=== PATIENT | male | born 1960 | race Caucasian/White ===

== ENCOUNTER 2016-12-21 22:10 | Inpatient (IN) | payer MEDICARE, OTHER ==
[~2016-12-21] VITALS: Ht 177.8 cm; Wt 68.2 kg
[~2016-12-21 22:10] MED LIST: GABA800T PO; OXYC-90 PO; [UNRECOGNIZED DRUG - CODE] PO
[2016-12-21 22:34] VITALS: BP 123/80; PULSE 95; RESP 20; O2SAT 98
--- NOTE | 2016-12-21 22:44 | ED.REPORT ---
HPI-Psychiatric Illness Date of Service Dec 21, 2016 ED Provider: Kash Trejo MD Patient is a 56 year old male with a history of schizophrenia who presents to the ED via [place] [employer] after he developed delusional and aggressive behavior today. [place] Police were called to his elderly parent's residence this evening after he was threatening towards them. The patient had become obsessed with a device in his brain and several government conspiracies. The patient requested to be "taken offline and declared ". On initial evaluation in the ED the patient has multiple complaints. He states that this is his last chance before he goes to [place] to seek medical asylum. His main problems are "the ALEX ", "that we are the richest country in the world", and that he is "llergic to a substance called "icarus" which degrades all of the joints in my body and my reproductive organs". 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 However, the government is keeping him from getting adequate medical care and there are "political winds" working against him. He reports that all of the imaging of his bones that he has ever had has been falsified. This is something that goes beyond this hospital and is a high up conspiracy. He previously noticed that he has an implant on his optical nerve while looking at a scan of his head, but was told that this was not actually there. He previously broke his right wrist, shoulder, and ankle but all imaging he has received stated that he did not have broken bones. The patient also has a condition where his sympathetic nerves do not allow him to feel pain, however he later reports that he experiences pain that "almost kills me". The patient was reportedly seen by Dr. Jones, neurology, for his chronic pain. He states that Dr. Jones ordered an MRI of his shoulder and he became unhappy when he would not perform an MRI extending to his back and neck. However he now realizes that Dr. Jones was a "smart doctor". Tonight the patient is requesting an MRI of his back, due to his "T-spine blowout" and an MRI of his right shoulder. He states that x-rays and CT scan cannot are not adequate and that any report cannot be trusted. The patient has reportedly not had mental health treatment in 5 years and is not currently on any psychiatric medications. Patient was last admitted to [facility] in 2004 for psychosis. Nursing Notes Stated Complaint: MENTAL HEALTH Chief Complaint: Psychiatric Complaint Nursing Notes Reviewed: Yes Allergies: Coded Allergies: No Known Allergies (Verified , 08/01/05) Scheduled Gabapentin-Expunged Drug, Do Not Renew! (Neurontin-Expunged Drug, Do Not Renew! ) 800 Mg Tablet 800 MG PO TID Morphine-Expunged Drug, Do Not Renew! (MS Contin-Expunged Drug, Do Not Renew!) 30 Mg Tber 30 MG PO TID Oxycodone/APAP-Expunged Drug, Do Not Renew! (Percocet 7.5/325-Expunged Drug, Do Not Renew!) 1 Tab Tablet 1 TAB PO TID General Time Seen by MD: 22:34 Chief Complaint Bizarre behavior, Paranoid Hx Obtained From: Patient, Police Arrived By: Police Onset Occurred: 1 day ago Symptom Duration: Since onset Progression Since Onset: Gradually worsening Recent Healthcare: No recent doctor visit, No recent hospitalization Similar Sx Previous: Yes Risk-Psychiatric Illness Suicide Risk Stratification Suicide Risk Factors - Adult: : Alcohol use: Prior psych admission RF Statements: Risk factors reviewed Past Medical History Past Medical History schizophrenia, prior psychiatric admission for psychosis pancreatitis depression traumatic clavicle separation Reports: Hypertension Reports: Migraines Past Surgical History Reports: Back/neck surgery Smoking History Smoker Current Status UNK Social History Other Social History: Good social support, Local resident Ambulatory Status Independent Review of Systems Unable to Obtain ROS Mental status (limited by) Psychiatric: Reports: Change mental status, Delusional Musculoskeletal: Reports: Extremity pain, Joint pain Physical Exam Initial Vital Signs Vital Signs (First) Date Time Temp Pulse Resp B/P Pulse Ox O2 Delivery O2 Flow Rate FiO2 12/21/16 22:34 36.6 95 20 123/80 98 Room Air Initial VS: Reviewed Head / Eyes: Atraumatic, Normocephalic, PERRL ENT: Conjunctiva normal, No scleral icterus Neck: Supple, Non-tender, Full range of motion Respiratory: Breath sounds normal, Clear to auscultation, No respiratory distress Cardiovascular: Regular rate & rhythm, Heart sounds normal Abdomen / GI: Soft, Non-tender, No distention Extremities: Vascular intact, Neuro intact, No swelling, No tenderness Skin: Warm, Dry, No cyanosis General/Constitutional: Awake, Alert, No acute distress Neurologic: Oriented X3, No motor deficits, No sensory deficits, CN II - XII intact Psychiatric: Not suicidal, Not homicidal Abnormal Thinking / Perception: Positive: Delusions - grandeur, Delusions - paranoid, Tangential thinking manic psychotic speech pattern Interpretation & Diagnostics Interpretation & Diagnostics: Breathalyzer @ 0401: 0.045 Urine Drug Screen: Negative Lab Results Interpretation Result Diagram: 12/21/16 2314 12/21/16 2314 Test 12/21/16 23:14 12/22/16 00:55 White Blood Count 6.2th/mm3 (3.8-10.1) Red Blood Count 4.05mil/mm3 (4.40-5.80) Hemoglobin 13.9g/dL (13.8-17.2) Hematocrit 39.2% (41.0-50.0) Mean Corpuscular Volume 96.8fL (81-100) Mean Corpuscular Hemoglobin 34.3pg (27.0-35.0) Mean Corpuscular Hemoglobin Concent 35.5% (32.0-37.0) Red Cell Distribution Width 12.1% (12.3-15.4) Platelet Count 222bil/L (150-400) Neutrophils (%) (Auto) 43.9% (40-74) Lymphocytes (%) (Auto) 43.4% (14-46) Monocytes (%) (Auto) 8.8% (4-12) Eosinophils (%) (Auto) 2.9% (0-5) Basophils (%) (Auto) 0.8% (0-3) Erythrocyte Sedimentation Rate 14mm/hr (0-30) Sodium Level 139mEq/L (134-144) Potassium Level 3.8mEq/L (3.5-5.2) Chloride Level 101mEq/L (97-108) Carbon Dioxide Level 24mmol/L (18-29) Blood Urea Nitrogen 13mg/dL (6-24) Creatinine 0.73mg/dL (0.76-1.27) Estimat Glomerular Filtration Rate 117mL/min (>59) Glucose Level 104mg/dL (60-99) Calcium Level 9.1mg/dL (8.5-10.1) Magnesium Level 2.0mg/dL (1.6-2.6) Total Bilirubin 0.3mg/dL (0.0-1.2) Aspartate Amino Transf (AST/SGOT) 55U/L (0-50) Alanine Aminotransferase (ALT/SGPT) 30U/L (0-44) Alkaline Phosphatase 72U/L (25-150) Total Protein 7.4g/dL (6.4-8.4) Albumin 4.3g/dL (3.4-5.0) Hold No Top Tube Received (Received) Alcohols 165mg/dL (0-10) Urine Color Straw (YELLOW) Urine Appearance Clear (CLEAR,HAZY) Urine pH 5.5 (5.0-8.0) Urine Specific [place] 1.005 (1.003-1.035) Urine Protein Negativemg/dL (NEG,TRACE) Urine Glucose (UA) Negativemg/dL (NEGATIVE) Urine Ketones Negativemg/dL (NEGATIVE) Urine Occult Blood Trace (NEGATIVE) Urine Nitrite Negative (NEGATIVE) Urine Bilirubin Negative (NEGATIVE) Urine Urobilinogen Normalmg/dL (NORMAL) Urine Leukocyte Esterase Negative (NEGATIVE) Urine RBC 0-2/hpf (0-2) Urine WBC 0-5/hpf (0-5) Urine Epithelial Cells Occasional/hpf (NONE-MOD) Urine Crystals None seen (NONE SEEN) Urine Bacteria None/hpf (NONE-FEW) Urine Hyaline Casts None/lpf (NONE) Urine Granular Casts None seen (NONE SEEN) Urine Waxy Casts None seen (NONE SEEN) Urine Red Blood Cell Casts None seen (NONE SEEN) Urine White Blood Cell Casts None seen (NONE SEEN) Urine Mucus None seen (None Seen) Urine Trichomonas None seen (NONE SEEN) Urine Yeast None (NONE SEEN) Urinalysis Comment None Urine Culture Reflexed Not indicated Re-Eval/Medical Decision Med Decision/Clinical Course 56-year-old purportedly with a diagnosis of schizophrenia presents more suggestively with bipolar manic type symptoms. He was threatening to his parents at home and brought in by police after a 911 call made. He is a fairly extensive fixed delusional system involving computer chips in his head and government control. He is not voluntary patient in the sense that he is completely unaware and unwilling to believe in any mental health issues or diagnoses. He is oriented. He is no longer intoxicated. He is medically clear and stable for psychiatric evaluation. DCR has been paged and will evaluate this morning. Signed out at [address] Howard. Source of Hx: Old records Re-Evaluation/Progress #1: Time of Eval: 03:00 Re-Evaluation/Progress Note: Patient continues to sleep in the ED comfortably. Re-Evaluation/Progress #2: Time of Eval: 05:29 Patient Status: Condition improved Re-Evaluation/Progress Note: Patient is now awake. Patient reports that he slept for 1.5 hours tonight, which is more than the typical amount of sleep that he gets. He requests to go outside to smoke. Patient will be give a nicotine patch. He also states that all the muscles in his body hurt, something which he typically takes Flexeril for. He will be given this medication to make him more comfortable. Consultation #1: Call Returned at: 04:17 Note: Spoke with the [facility] about the patient's case. They agree to dispatch the morning DCR to evaluate the patient. Consultation #2: Consulted With: powder worker tnt Call Returned at: 05:25 Slide Forming Machine Tender: Will see patient Note: Spoke with the DCR, Mei, about the patient's case. They agree to come evaluate the patient. Discharge & Departure Shift Change Sign-Out Patient Care Transferred: Yes Discussed Complaint(s): Yes Laboratory Evaluation: Back, reviewed by me Additonal Information: Awaiting DCR evaluation. Impression: Primary Impression: Psychosis Psychosis type: unspecified psychosis type Qualified Code: F29 - Unspecified psychosis not due to a substance or known physiological condition Additional Impression: Schizophrenia Schizophrenia type: unspecified Qualified Code: F20.9 - Schizophrenia, unspecified Discharge Condition All VS Reviewed: Yes Condition: Stable Referrals: Zoe Jackson (PCP) Care Transferred to: Dr. Howard Care Transferred at: 06:00 Divya Attestation Portions of this note were transcribed by Joyce Briot. I, Dr. Trejo personally performed the history, physical exam and medical decision-making; I reviewed and confirmed the accuracy of the information in the transcribed note. Signed by: Divya Valencia, 12/22/2016 0531 copies to: Zoe Jackson Christopher W MD Dec 21, 2016 22:44 Joyce Brito Dec 21, 2016 23:11
[2016-12-21 23:22] LABS: BASOPHILS % (AUTO) 0.8 % (0-3); EOSINOPHILS % (AUTO) 2.9 % (0-5); MONOCYTES % (AUTO) 8.8 % (4-12); Mean Corpuscular Hemoglobin 34.3 pg (27.0-35.0); Mean Corpuscular Volume 96.8 fL (81-100); NEUTROPHILS % (AUTO) 43.9 % (40-74); Platelet Count 222 bil/L (150-400)
[2016-12-21 23:39] LABS: ERYTHROCYTE SEDIMENTATION RATE 14 mm/hr (0-30)
[2016-12-22 01:03] LABS: APPEARANCE,URINE CLEAR (CLEAR,HAZY); COLOR,URINE STRAW (YELLOW); OCCULT BLOOD,URINE TRACE (NEGATIVE); PH,URINE 5.5 (5.0-8.0); UROBILINOGEN,URINE NORMAL (NORMAL)
[2016-12-22 06:02] VITALS: BP 130/81; PULSE 87; RESP 16; O2SAT 98
[2016-12-22 10:04] VITALS: BP 113/64; PULSE 107; RESP 20; O2SAT 97
[2016-12-22] MEDS ORDERED: Magnesium Hydroxide 10 mL Oral Concentration PO PRN ×2 (10:20→15:50)
[2016-12-22] MEDS ORDERED: Benzocaine-Menthol Lozenge 2/Pkg MT PRN (10:20)
[2016-12-22] MEDS ORDERED: Alum-Mag Hydrox-Simeth 30 mL Suspension PO PRN ×2 (10:20→15:50)
[2016-12-22 11:06] VITALS: BP 113/64; PULSE 107; RESP 20; O2SAT 97
--- NOTE | 2016-12-22 11:50 | NUR ---
Admit Note Pt admitted to room 228. Pt A/OX3, states "I'm at [facility]" and "I'm here to try one last time for treatment cause the FBI told me that I had to get treatment" Pt coop with care, oriented to room. Cont to monitor.
[2016-12-22] MEDS ORDERED: Benzocaine-Menthol Lozenge 2/Pkg PO PRN (15:50)
[2016-12-22 16:00] VITALS: BP 128/82; PULSE 90; RESP 18
--- NOTE | 2016-12-22 17:49 | NUR ---
Observations [id number] Pt arrived on unit at 1115. Pt stated that he is concerned about the government and "the chip they put in my brain." He presents are very paranoid. Pt was friendly with staff and didn't interact much with peers. He spent time between his room and dining area, and also spent time reading. Pt did not attend groups. He was observed every 15 minutes of shift as directed.
--- NOTE | 2016-12-22 21:37 | NUR ---
Nursing note: evening shift/psychosis Patient observed walking in hallway and dining room, minimal interaction with peers, superficially polite when advertising copy writer approached. Patient requests Nicorette lozenge for cigarette cravings. Patient ate well at dinner, then returned to room and resting on bed. Patient perseverates about a device implanted behind his optic nerve that "they" control. Patient states this device is usually not seen on xray, but he has seen it and knows it is there Patient reports "they" usually do not allow him to sleep more than an hour at at time. 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 Patient is cooperative with po medications, polite and thanks advertising copy writer for concern.
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
--- NOTE | 2016-12-23 03:14 | NUR ---
Observations 1900 to 0700 Pt was in his room for most of the night. Pt came out briefly on a few occasions. Pt first appeared asleep at 21:15 and was observed every 15 minutes through the night as directed.
--- NOTE | 2016-12-23 06:20 | NUR ---
Pt slept through the night with uninterrupted sleep until 0530 when he woke up requesting Valium 5mg prn and went back to sleep. No delusional ideations observed or reported. Pt in no acute distress. Monitoring ongoing.
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
[2016-12-23 09:00] VITALS: BP 118/74; PULSE 102; RESP 16
--- NOTE | 2016-12-23 12:57 | NUR ---
Nursing Day Shift- S- I'm ok. I'm dealing with some disappointments, but I need to talk to the Dr. about that." O- Pt. had slept 7.5 plus hours per report. He was awake and dressed for breakfast. Pt. was polite when staff introduced themselves. He eat well and was visible in the DR. He was overheard reporting delusional and paranoid thoughts. Pt. stated the above when asked how he was doing today. He declined to share any further. A- Polite, Several paranoid statements and apparent anxiety treated effectively with Valium PRN. P- Cont. BHTP.
--- NOTE | 2016-12-23 16:47 | NUR ---
Observations [id number] Pt was asleep upon start of shift. He appears as quiet, friendly upon interaction, but also very isolative. Pt's parents came to drop off a check for him to endorse to deposit. Pt also attended group and Community Meeting. He paced the unit at times, spending time in the dining area but not interacting with others. He also spent much of the day in his room. While he was wondering the halls he appeared to be internally preoccupied. He made a comment to this scenario writer regarding his parents coming to court, stating "there are things about the government...things bigger then them that I don't want them to know about." Pt appeared to be referencing his concern around their safety if they knew that information. Pt attended all meals, eating an average of 75%. He was observed every 15 minutes of shift as directed.
--- NOTE | 2016-12-23 18:50 | NUR ---
Nurses Note Evening Patient has been isolative to his room except for meals. When approached was hyperverbal, grandiose with paranoid thoughts about implantable devices in his head,tampered X-rays and telepathic communication with others. Will encourage medication compliance,reality test as tolerated. Addendum: 12/23/16 at 1859 by BRET RENDON RN Amended: Links added.
--- NOTE | 2016-12-23 21:33 | PCM.PNPSY ---
Subjective Date of Service Dec 23, 2016 Subjective The patient reports multiple conspiracies and that he feels that we should be reviewing his medical treatment and not focusing on his psychiatric issues. He reports he would like x-rays taken with transmission grayscale placed on them so that he can verify that they have not been substituted. He reports that if we will not work on this, he will need to contact [place] or the [employer]. Sleep: 7.75 hours Appetite: "fine" Suicidal and homicidal ideation: denies Auditory hallucinations: denies Visual hallucinations: denies Other Psychotic Symptoms: multiple delusions Anxiety: "because I'm bored." Depression: "malaise" Current Medications Current Medications Diazepam 5 mg BID PO Last administered on 12/23/16 20:27; Admin Dose 5 MG; Start 12/22/16 at 15:50 Diazepam 5 mg TID PRN PO Last administered on 12/23/16 13:06; Admin Dose 5 MG; Start 12/22/16 at 15:50 Diazepam 10 mg ONCE ONCE PO Last administered on 12/22/16 06:02; Admin Dose 5 MG; Start 12/22/16 at 05:40; Stop 12/22/16 at 05:41; Status DC Naproxen 500 mg ONCE ONCE PO Last administered on 12/22/16 06:11; Admin Dose 500 MG; Start 12/22/16 at 06:00; Stop 12/22/16 at 06:01; Status DC Nicotine 1 patch DAILY@17 TOPICAL Last administered on 12/23/16 08:39; Admin Dose 1 PATCH; Start 12/22/16 at 17:15 Nicotine 1 patch ONCE ONCE TOPICAL Last administered on 12/22/16 06:01; Admin Dose 1 PATCH; Start 12/22/16 at 05:30; Stop 12/22/16 at 05:31; Status DC Nicotine Polacrilex 2 mg ONCE ONCE BUCCAL Last administered on 12/22/16 06:01; Admin Dose 2 MG; Start 12/22/16 at 05:30; Stop 12/22/16 at 05:31; Status DC Nicotine Polacrilex 2 mg Q4H PRN BUCCAL Last administered on 12/22/16 17:45; Admin Dose 2 MG; Start 12/22/16 at 17:20 Olanzapine 10 mg HS PO Last administered on 12/23/16 20:27; Admin Dose 10 MG; Start 12/22/16 at 21:00 Trazodone HCl 50 mg HS PRN PO Last administered on 12/23/16 20:27; Admin Dose 50 MG; Start 12/22/16 at 10:20 Mental Status Exam Appearance: Unkept Attitude: Cooperative, Guarded Behavior: Overtly anxious Affect: Other (intense, but remains appropriate) Mood: Irritable Thought Process/Associations: Tangential, Circumstantial Speech Production: Abundant Speech Rate: Pressured Speech Articulation: Normal Thought Content: Negativistic, Somatic preoccupation, Perseveration Danger to Self/Suicidal Ideati: None Delusions: Paranoid (Endorses) Hallucinations: Auditory (Denies), Visual (Denies) Consciousness: Alert Orientation: Person, Place, Date, Situation Memory: Grossly Intact Estimate Intellectual Function: Average Basis for IQ estimate: Awareness current events, Word use/vocabulary, Educational history, Employment history Attention/Concentration & Cogn: Impaired Insight: Limited Judgement: Limited Result Diagram: 12/21/16 4734 12/21/164 Mental Health Plan The patient is a 56-year-old male with a history of psychosis or schizophrenia who presents with worsening psychotic symptoms and aggressive behavior. The patient has not had any recent followup. The patient is agreeable to medications and followup in the community. He is focused today on a number of medical issues that he perceives as being part of the perceived conspiracy. [place] I 1. Psychotic disorder, unspecified versus schizophrenia, chronic paranoid type versus schizoaffective disorder, bipolar type. 2. Alcohol use disorder. [place] II Deferred. [place] III See past medical history. [place] IV Severe with unemployment, homelessness, limited social supports. [place] V Global Assessment of Functioning 30. Treatments 1. The patient is admitted to the inpatient unit and will be provided a safe and secure environment. 2. The patient is currently denying active suicidality and is not in need of a one-to-one at this time. 3. The patient is encouraged to participate with group and milieu activities. 4. The patient will be seen by the treatment team on a daily basis to assess symptoms, side effects, and response to treatment. 5. The patient will be continued on olanzapine 10 mg nightly for psychosis. 6. The patient will be continued on diazepam 5 mg twice daily for agitation and elevated mood as well as 5 mg three times a day as needed. 7. May need mood stabilizer if does not respond to olanzapine monotherapy. 8. Trazodone 50 mg nightly as needed for insomnia. 9. Methocarbamol 750 mg four times daily as needed for muscle spasm. 10. Anticipated length of stay is 10-14 days. Titi Bonilla MD Dec 23, 2016 21:33
[2016-12-24 08:00] VITALS: BP 101/71; PULSE 92; RESP 16
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
--- NOTE | 2016-12-24 19:16 | NUR ---
Counseling/Auto Engine Mechanic: S: "So how are you holding up while you're up here on the 2nd floor?" O: Patient slept 8 hours last night per staff. He denies S/I and H/I. He denies auditory an visual hallucinations. A: Patient is cooperative, unkept, guarded, anxious, tangential, paranoid, limited insight, limited judgment. P: Follow care plan, coordinate out-patient providers.
--- NOTE | 2016-12-24 21:14 | PCM.PNPSY ---
Subjective Date of Service Dec 24, 2016 Subjective The patient reports that he would like to switch from [facility] to [facility] "as long as they aren't affiliated with [facility]." The patient reports that he would like a better support system in the community. Patient still focused on multiple medical issues and conspiracy against him, but redirects. He reports, "Feeling frozen out of the medical system." Patient reports would like new muscle relaxer, but has not tried the current one. Encouraged patient to use muscle relaxer for spasm. No side effects from current medications. Reports believes he can return to live with his parents. Sleep: 8 hours, "tossing and turning" Appetite: "fine" Suicidal and homicidal ideation: denies Auditory hallucinations: denies Visual hallucinations: denies Other Psychotic Symptoms: multiple delusions attenuated Anxiety: "because I'm primary type A." Depression: "not really" Current Medications Current Medications Nicotine 1 patch DAILY TOPICAL Last administered on 12/24/16t 07:04; Admin Dose 1 PATCH; Start 12/24/16 at 08:30 Mental Status Exam Appearance: Unkept Attitude: Cooperative Behavior: Overtly anxious Affect: Other (intense, but remains appropriate) Mood: Irritable Thought Process/Associations: Tangential, Circumstantial Speech Production: Abundant Speech Rate: Pressured Speech Articulation: Normal Thought Content: Negativistic, Somatic preoccupation, Perseveration Danger to Self/Suicidal Ideati: None Delusions: Paranoid (Endorses) Hallucinations: Auditory (Denies), Visual (Denies) Consciousness: Alert Orientation: Person, Place, Date, Situation Memory: Grossly Intact Estimate Intellectual Function: Average Basis for IQ estimate: Awareness current events, Word use/vocabulary, Educational history, Employment history Attention/Concentration & Cogn: Impaired Insight: Limited Judgement: Limited Result Diagram: 12/21/16 2314 12/21/16 2314 Mental Health Plan The patient is a 56-year-old male with a history of psychosis or schizophrenia who presents with worsening psychotic symptoms and aggressive behavior. The patient has not had any recent followup. The patient is agreeable to medications and followup in the community. He is less focused today on his medical issues and reports that he feels his current medications are helpful. [place] I 1. Psychotic disorder, unspecified versus schizophrenia, chronic paranoid type versus schizoaffective disorder, bipolar type. 2. Alcohol use disorder. [place] II Deferred. [place] III See past medical history. [place] IV Severe with unemployment, homelessness, limited social supports. [place] V Global Assessment of Functioning 30. Treatments 1. The patient is admitted to the inpatient unit and will be provided a safe and secure environment. 2. The patient is currently denying active suicidality and is not in need of a one-to-one at this time. 3. The patient is encouraged to participate with group and milieu activities. 4. The patient will be seen by the treatment team on a daily basis to assess symptoms, side effects, and response to treatment. 5. The patient will be continued on olanzapine 10 mg nightly for psychosis. 6. The patient will be continued on diazepam 5 mg twice daily for agitation and elevated mood as well as 5 mg three times a day as needed. 7. May need mood stabilizer if does not respond to olanzapine monotherapy. 8. Ambien 5-10 mg nightly as needed for insomnia. 9. Flexeril 10mg mg four times daily as needed for muscle spasm. 10. Anticipated length of stay is 10-14 days. Titi Bonilla MD Dec 24, 2016 21:14
--- NOTE | 2016-12-25 04:13 | NUR ---
nursing, nights, 11-7 s- i keep waking up. it's like i'm being remote controlled. i start to fad and then i just speed up. no i've always had trouble sleeping. i'd prefere the valium to the ambien. thank you. it's twenty to five and we're burning good daylight. [pt smiles when i point out it's dark and says you'll never make it as a ceballos] o- has appeared to sleep after [id number]. returned to sleep at 0045. up at 0145 and received 5 mg of ambien then easily returned to sleep. up at 0330 and received 5 mg of valium at 0405. alternates between lying in bed and wandering the halls. assessed q 15 minutes. a- interrupted sleep, pleasant and generally appropriate, no apparent internal stimuli, medication somewhat helpful, no apparent distress. p- monitor behavior/emotional state, quality, times and amount of sleep, use and effect of medication. jarett
[2016-12-25 09:00] VITALS: BP 101/72; PULSE 81
--- NOTE | 2016-12-25 11:07 | NUR ---
Nursing Dayshift: S: "I'm to freaked to be depressed." O: Patient relating to a CT he is going to have today. Calmer after he had spoken to the doctor and found out it would not have contrast. Anxiety "I feel like I'm taking off!" Denies harmful thoughts and hallucinations "I can have a hallucination if you want me to." Has been out of his room most of the AM. Good appetite. Talkative on approach. Pressured at times. A: Cooperative. P: CPOC. Monitor mood and behavior.
--- NOTE | 2016-12-25 13:02 | NUR ---
Obs Dayshift Pt is declining groups, engages well w/ peers and staff. Polite, calm, quiet on the unit. Pt. continues to believe that he has things/chips in his head, paranoid about people after him and that he is going into protective custody. Pt was requesting the front page of the newspaper, which staff choose not to put on the floor due to content, pt was paranoid and asking staff if the front page was about him. Good ADL's, Good meals - 100%
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
--- NOTE | 2016-12-25 22:58 | NUR ---
Nurses Note Evening "I'm waiting for the doctor to come out of that room." Patient was sitting in the hallway waiting for another patients' father to come out into the ocasio. Patient was redirected several times but was unable to process his reality. He otherwise has been isolative except for meals and medications. He remains medication compliant without adverse effects. Patient is scheduled for a CT scan tomorrow. Patient has had multiple X-rays and MRI in the past which noted DJD,surgical hardware in his cervical spine. He received Motrin 600mg and Ambien 5mg at 2100 for pain and sleep. shift stacker to assess sleep and maintain q 15min.checks for safety and support. Addendum: 12/25/16 at 2318 by BRET RENDON RN Amended: Links added.
--- NOTE | 2016-12-26 04:48 | NUR ---
nursing, nights, 11-7 s- your telling me no one in this hospital can have coffee before 6 am ? seems rather spurious to me. when can i have a shower ? o- has appeared to sleep after 2114. up for brief intervals at 2305, 0031, 0213, 0239, 0343 received repeat 5 mg of ambien, [id number] made above statement. irritated with staff that more options were not available before 6 am. is currently preparing to shower. assessed q 15 minutes. a- interrupted/inadequate sleep, resistant to staff assistance, no apparent physical distress. p- monitor behavior/emotional state, quality, times and amount of sleep, use and effect of medication. jarett
--- NOTE | 2016-12-26 05:27 | NUR ---
Pt appeared pressured and on the edge of agitation both in the evening and when up in the morning. Pt up and down frequently through night. Slept 5- with the multiple disruptions in sleep. Pt observed every 15 minutes as ordered.
--- NOTE | 2016-12-26 13:17 | DRSVH ---
PROCEDURE: CT BRAIN WITHOUT CONTRAST ([id number]) INDICATIONS: PSYCHOSIS TECHNIQUE: Noncontrast 4.5 mm thick angled axial sections acquired from the foramen magnum to the vertex, with c oronal reformats. COMPARISON: None. FINDINGS: Image quality: Excellent. CSF spaces: Basal cisterns are patent. No extra-axial fluid collections. The ventricles are symmet mary in size and shape. Brain: No intracranial bleeds or masses. There is cerebral volume loss for age, with resultant vent ricular and sulcal prominence. There are periventricular and deep white matter chronic small vessel ischemic changes. There is intracranial internal carotid artery atherosclerosis. Skull and face: Calvarium and visualized facial bones appear intact, without suspicious lesions. Sinuses: Visualized sinuses and mastoids are clear. IMPRESSION: No acute process. No explanation for psychosis. Dictated by: Marlene Muir M.D. on 12/26/2016 at 13:15 Approved by: Marlene Muir M.D. on 12/26/2016 at 13:16
--- NOTE | 2016-12-26 13:50 | NUR ---
NURS Note Day Shift Orientation: Person, Place, Time. Mood: "I'm too angry to be depressed." Endorses anxiety / prior to court. Endorses "some" depression "mixed in." Affect: Anxious, agitated, guarded. Thought Process/Content: "I've got thousands of people in my head each working on different parts of my psyche." Bizarre, persecutory, grandiose delusions. Denies SI, HI. Denies AH, VH. Behavior: Pacing, standing by nurses station. Out in common areas most of shift. PRNs/NURS: Took scheduled meds.
--- NOTE | 2016-12-26 17:41 | NUR ---
[facility] Day Shift Pt maintained behavioral control throughout the shift. Pt affect mostly flat, though less so than noted on previous shift. Pt spends most of the shift pacing the unit and lightly interacting with staff and peers in the dining room. Pt is appropriate with staff and peers when active on the unit. Pt occasionally appears to be attending to internal stimuli (pt stares appear distant) and remains guarded. Pt continues to express delusions of persecution. Pt attended all meals and ate approx 100% of all meals.
[2016-12-26 17:52] VITALS: BP 105/71; PULSE 93; RESP 16
--- NOTE | 2016-12-26 18:17 | PCM.PNPSY ---
Subjective Date of Service Dec 26, 2016 Subjective The patient reported that he still had the belief and ongoing conspiracies regarding his medical records. We discussed his family's concern that he stabilized prior to returning home and the patient did not support this. The patient is concerned about outpatient follow-up for his medical issues and reported that he would like to have follow-up with [facility] in [place] but they do not have an office there. Following his head CT and provisional reports that there were no major findings insisted that there "must be." He believes this sports book writer is not discussing the results with him as this sports book writer will somehow get into trouble with the government. No side effects reported from olanzapine. Sleep: 5.5 hours Appetite: "Good " Suicidal and homicidal ideation: Denies Auditory hallucinations: Reports that the auditory hallucinations has reduced significantly, but refers to them as intrusions by the government. Visual hallucinations: Denies Other Psychotic Symptoms: Circumstantial, rambling. Current Medications Current Medications Olanzapine 15 mg HS PO Last administered on 12/25/16t 21:04; Admin Dose 15 MG; Start 12/25/16 at 21:00 Mental Status Exam Vital Signs Vital Signs Date Time Temp Pulse Resp B/P Pulse Ox O2 Delivery O2 Flow Rate FiO2 12/26/16 17:52 36.4 93 16 105/71 Appearance: Neat/well groomed Attitude: Cooperative, Guarded Behavior: Overtly anxious Affect: Other (intense, but remains appropriate) Mood: Anxious Thought Process/Associations: Tangential, Circumstantial Speech Production: Abundant Speech Rate: Pressured Speech Articulation: Normal Thought Content: Negativistic, Somatic preoccupation, Perseveration Danger to Self/Suicidal Ideati: None Danger to Others: None Delusions: Paranoid (Endorses) Hallucinations: Auditory (Endorses), Visual (Denies) Consciousness: Alert Orientation: Person, Place, Date, Situation Memory: Grossly Intact Estimate Intellectual Function: Average Basis for IQ estimate: Awareness current events, Word use/vocabulary, Educational history, Employment history Attention/Concentration & Cogn: Impaired Insight: Limited Judgement: Limited Result Diagram: 12/21/16 3568 12/21/16 8247 Mental Health Plan The patient is a 56-year-old male with a history of psychosis or schizophrenia who presents with worsening psychotic symptoms and aggressive behavior. The patient has not had any recent followup. The patient is agreeable to medications and followup in the community. He is less focused today on his medical issues and reports that he feels his current medications are helpful, but is still reporting ongoing auditory hallucinations and is experiencing rapid pressured speech. He was unwilling to stay in the hospital voluntarily or continue his case and ultimately the court placed him on a 90 day less restrictive order with 3 inpatient days. It is doubtful that the patient will be significantly improved by the end of this time however he will likely improve sufficiently to be returned home. The patient's head CT demonstrated some volume loss for age and white matter changes. No other acute findings. [place] I 1. Psychotic disorder, unspecified versus schizophrenia, chronic paranoid type versus schizoaffective disorder, bipolar type. 2. Alcohol use disorder. [place] II Deferred. [place] III See past medical history. [place] IV Severe with unemployment, homelessness, limited social supports. [place] V Global Assessment of Functioning 30. Medications Olanzapine 15 mg at bedtime Diazepam 5 mg twice daily Diazepam 5 mg 3 times daily as needed for anxiety or agitation Zolpidem 5 mg nightly when necessary insomnia Flexeril 10 mg 3 times daily as needed for spasm Treatments 1. The patient is admitted to the inpatient unit and will be provided a safe and secure environment. 2. The patient is currently denying active suicidality and is not in need of a one-to-one at this time. 3. The patient is encouraged to participate with group and milieu activities. 4. The patient will be seen by the treatment team on a daily basis to assess symptoms, side effects, and response to treatment. 5. Continue olanzapine 15 mg nightly. 6. The patient will be continued on diazepam 5 mg twice daily for agitation and elevated mood as well as 5 mg three times a day as needed. 7. May need mood stabilizer if does not respond to olanzapine monotherapy. 8. Ambien 5-10 mg nightly as needed for insomnia. 9. Flexeril 10mg mg 3 times daily as needed for muscle spasm. 10. Anticipated length of stay is 10-14 days. Titi Bonilla MD Dec 26, 2016 18:17
--- NOTE | 2016-12-26 19:10 | NUR ---
Counseling/Nuclear Reactor Technician: S: "The government put a chip in my cerebellum and think that I'm okay with it" O: Patient only slept 5.5 hours last night per staff. He denies S/I and H/I. He denies auditory an visual hallucinations. He denies depression and anxiety. A: Patient is cooperative, unkept, guarded, anxious, tangential, paranoid, delusional, limited insight, limited judgment. P: Follow care plan, coordinate out-patient providers.
--- NOTE | 2016-12-26 20:58 | NUR ---
NURSING NOTE [id number] Mood: "well, my anxiety, anger, and physical state are at an 8" Affect: paranoid, delusional Behavior: visible off and on in the DR, staring out the windows, making phone calls off and on, interacts sparingly w/peers Thought processes: continues to be delusional and makes bizarre statements, e.g reports he has a cell receptor implanted in his head and is being monitored; "I'm glad the doctor has accepted my parlance and has granted me a CT to finally clear the cath lab radiological technologist in my head." Endorses anxiety. PRNs Valium 5 mg @ 15:30 for anxiety 04/30
--- NOTE | 2016-12-27 05:51 | NUR ---
Nursing notes: overnight caregiver/sleep Patient awake at 0045, stating he can not fall back to sleep. Patient received repeat Ambien 5 mg po and returned to bed. Patient appears to be sleeping on safety checks from 130 to 0400, then remains up to hallway and dining room for the remainder of night. Patient is soft spoken and polite on approach. Remains with fragmented sleep.
[2016-12-27 08:07] VITALS: BP 104/61; PULSE 90; RESP 16
--- NOTE | 2016-12-27 11:15 | NUR ---
Nursing Day Shift- S- "I need something for pain. I never have gotten a pain pill. The said he would write for it if I could show I'd has a prescription. The thing is..Nobody will touch my case or they will loose their medicare, medicaid funding! A little office can't afford that, even this facility will be hurt!" O- Pt. began rambling about the above after asking about narcotic pain medications at 0730. He was given PRN Flexeril 10 mg at that time. Pt. was unable to confirm that he had an active prescription. All prescriptions had been in the past. He eat well. and remained hyperverbal at [facility]. A- Poor sleep of 3.5 hours per report. Paranoid and delusional thoughts. Eating well. Hyperverbal, but otherwise socially appropriate. P- Cont. bHTP. Addendum: 12/27/16 at 1133 by SRI BAKER RN Pt. requested and given Valium 5 mg at 1135 for anxiety.
--- NOTE | 2016-12-27 12:50 | PCM.PNPSY ---
Subjective Date of Service Dec 27, 2016 Subjective The results of the head CT and the images themselves were gone over with the patient. He also asked to review a number of other studies which were done with the patient. He was also shown a [place] view but stated that an image had been removed as he had seen an implant on the x-ray. We discussed that there are typically no other images but the patient disagreed. He went on to continue to talk about conspiracies and the need to adequately address his pain. He was informed he would need to be with a primary care physician who would address potentially using narcotic pain medication once out of this setting. He reported that he felt it was difficult hearing that he had schizophrenia in the court room and he believed that he could prove that the conspiracies to prove the implants on the films were real. When he was asked what makes him special so that others would go to the expense of replacing his films he stated "if I tell you it will make you think I am just more mentally ill." The patient was agreeable to having outpatient follow-up with [facility] in [place]. No side effects reported from olanzapine. Sleep: 3.5 hours Appetite: "Not bad " Suicidal and homicidal ideation: Denies Auditory hallucinations: Reports that the auditory hallucinations has reduced significantly, and he is only hearing "crickets" Visual hallucinations: Denies Other Psychotic Symptoms: Circumstantial, rambling. Anxiety/Depression: "Anger, anxiety, depression, frustration and "8-9/10 Current Medications Current Medications Olanzapine 15 mg HS PO Last administered on 12/26/16t 21:31; Admin Dose 15 MG; Start 12/25/16 at 21:00 Mental Status Exam Vital Signs Vital Signs Date Time Temp Pulse Resp B/P Pulse Ox O2 Delivery O2 Flow Rate FiO2 12/27/16 08:07 36.0 90 16 104/61 Appearance: Neat/well groomed Attitude: Cooperative (marginally), Guarded Behavior: Overtly anxious Affect: Other (intense, but remains appropriate) Mood: Anxious Thought Process/Associations: Tangential, Circumstantial Speech Production: Abundant Speech Rate: Pressured Speech Articulation: Normal Thought Content: Negativistic, Somatic preoccupation, Perseveration Danger to Self/Suicidal Ideati: None Danger to Others: None Delusions: Paranoid (Endorses) Hallucinations: Auditory (Endorses), Visual (Denies) Consciousness: Alert Orientation: Person, Place, Date, Situation Memory: Grossly Intact Estimate Intellectual Function: Average Basis for IQ estimate: Awareness current events, Word use/vocabulary, Educational history, Employment history Attention/Concentration & Cogn: Impaired Insight: Limited Judgement: Limited Result Diagram: 12/21/16 5434 12/21/16 3145 Mental Health Plan The patient is a 56-year-old male with a history of schizophrenia who presents with worsening psychotic symptoms and aggressive behavior. The patient has not had any recent followup. The patient is agreeable to medications and followup in the community. He is still focused today on his medical issues and reports that he feels his current medications are helpful, and is now only reporting auditory hallucinations of crickets and is still experiencing rapid pressured speech but is more redirectable. He was unwilling to stay in the hospital voluntarily or continue his case and ultimately the court placed him on a 90 day less restrictive order with 3 inpatient days. It is doubtful that the patient will be significantly improved by the end of this time however he will hopefully improve sufficiently to be returned home. The patient's head CT demonstrated some volume loss for age and white matter changes. No other acute findings. [place] I 1. Schizophrenia, chronic paranoid type versus schizoaffective disorder , bipolar type. 2. Alcohol use disorder. [place] II Deferred. [place] III See past medical history. [place] IV Severe with unemployment, homelessness, limited social supports. [place] V Global Assessment of Functioning 35. Medications Olanzapine 15 mg at bedtime Diazepam 5 mg twice daily Diazepam 5 mg 3 times daily as needed for anxiety or agitation Temazepam 15 mg nightly when necessary insomnia may repeat 1 Flexeril 10 mg 3 times daily as needed for spasm Treatments 1. The patient is admitted to the inpatient unit and will be provided a safe and secure environment. 2. The patient is currently denying active suicidality and is not in need of a one-to-one at this time. 3. The patient is encouraged to participate with group and milieu activities. 4. The patient will be seen by the treatment team on a daily basis to assess symptoms, side effects, and response to treatment. 5. Continue olanzapine 15 mg nightly. 6. The patient will be continued on diazepam 5 mg twice daily for agitation and elevated mood as well as 5 mg three times a day as needed. 7. May need mood stabilizer if does not respond to olanzapine monotherapy. 8. Discontinue Ambien and start temazepam 15 mg nightly when necessary insomnia may repeat 1 9. Flexeril 10mg mg 3 times daily as needed for muscle spasm. 10. Anticipated length of stay is 10-14 days. Titi Bonilla MD Dec 27, 2016 12:50
--- NOTE | 2016-12-27 13:27 | NUR ---
Recovery Operator./c.m. S.: "Is it a part of my file now? The picture that I saw is not here. The image that I saw is not here right now... You were really rough on me yesterday in court. You called me a paranoid schizophrenic!" O.: met with pt. and MD together in a group room. MD was showing pt. images of pt.'s brain that were in pt.'s CD file. Pt. became frustrated and disappointed with his "file" because he believed that there was something missing that was very important for his "diagnosis". He also was upset with his diagnosis of paranoid schizophrenia. He believed that he had "medical issues that required pain medications. I'm not a schizophrenic! Look at people who are here - I am not like them!" He asked MD for a pain medications. He complained about poor sleep and he agreed to take a sleeping aid tonight. He denied SI/HI, denied AH/VH, denied paranoid/delusional thoughts. He rated "anxiety and anger" at 8-9/10 and "frustration and depression" at 8-9/10 also. He was in and out of his room but keeping mostly to himself. A.: pt. is cooperative, isolative, paranoid and delusional, internally preoccupied, seeking pain meds. P.: monitor behavior, continue engaging pt. in the unit activities; follow care plan.
--- NOTE | 2016-12-27 19:01 | NUR ---
Observations from [id number] Pt is very delusional and preoccupied. During community meeting this morning, he took over the conversation to discuss how much pain he's in and how no one has ever helped him and continued with this most of the day. He has also been very preoccupied with getting discharged even thought his thinking is very tangential and disorganized. He seems to have little insight into his delusions and feels he is completely ready to be discharged. Pt showered and did laundry today and ate 100% of all meals. Pt has been monitored every 15 minutes as directed.
--- NOTE | 2016-12-27 19:43 | NUR ---
NURSING NOTE [id number] Mood: "It's like biting into a pepper that's hotter than the habanero pepper, thinking everything's great but then it hits you." Affect: calm, pleasant upon approach Behavior: watching TV, spent some time in the rec room, social w/peers Thought processes: delusional, bizarre; reported: "there's a schism between organized crime and the government and I'm stuck in between it-- they're trying to control me and the question is if you're gonna let them." Disorganized and tangential in speech, e.g. discussing government conspiracies in one moment then reporting he is a hermaphrodite and needs corrective surgeries in another. PRNs 15:55- Valium 5 mg 16:05- Tylenol 650 mg + Flexeril 10 mg for 6/10 shoulder pain
--- NOTE | 2016-12-28 05:28 | NUR ---
Sleep 11p-7a financial health counselor awakening. Pt slept from 1299-1970 for a total of 5 hours. He requested a prn Valium 0.5mg stating "It's as good as any other pill. It isn't so much anxiety but anger". Valium 0.5 mg po prn given @ 0409. Pt has remained awake walking the hallway between his room and the dining room.
[2016-12-28 11:01] VITALS: BP 106/67; PULSE 82; RESP 16
--- NOTE | 2016-12-28 12:23 | NUR ---
Nursing Day Shift- S- "I need to leave today. This place Isn't working out for me. They could call me at home with my discharge follow-ups." O- Pt. was awake for breakfast. He made several delusional comments, and requested discharge. He requested and received PRN Valium 5 mg at 1130 for angry feelings. A- Delusional. able to control behavior, very limited insight. P- Discharge tomorrow as Pt's Mental health hold will .
--- NOTE | 2016-12-28 13:20 | NUR ---
Soldering Inspector./ c.m. S.:"Can I be released today? I committed no crime! I didn't do anything wrong but I was detained for a week now. I'm very intelligent. I have a good vocabulary that is more than 200 and I won't explain what it means... I feel maybe a little better today than yesterday. I'm not schizophrenic!" O.: met with pt. and MD together in a private room. Pt. demanded discharge home. He was angry and frustrated because he was here. He denied SI/HI, denied AH/VH, denied paranoid/delusional thoughts. He rated his anger, depression and anxiety at 7-8/10. He asked MD if he called FBI in [facility] to make an inquiry about his case. He said that he was related to 4 former presidents and 13 or 18 dignitaries. He talked about poor medications management and lack of correct diagnosis. He wanted to get a follow up appt. for medications with "a young doctor, preferably female who would be a constitution party." He was in and out of his room during the day. He spent a lot of time in the Dining room writing in his notebook or looking outside a window. He keeps mostly to himself. A.: pt. is isolative, paranoid, delusional, grandiose, confused and internally preoccupied. He has an intense eye contact, pressured speech and poor insight into his condition. P.: monitor behavior, provide safety in the unit, encourage pt. to take meds, follow care plan.
--- NOTE | 2016-12-28 18:15 | PCM.PNPSY ---
Subjective Date of Service Dec 28, 2016 Subjective The patient reports that he would like to be "released today." He states that he sees no reason for his further hospitalization. He reports that his IQ is over 200, and that he was angry that it was said that he was "prone to aggression"in court. He was reminded that the police reports indicated that he been verbally aggressive with his parents and that no one stated he was "prone to aggression." The patient went on for some time about believing that his medications as an outpatient were placebo and that on one occasion following a medical visit he took a handful of pills with out any affect. He believes that his medications here may be placebo as he believes his outpatient meds have been. He continues to perseverate on the x-ray imaging not being available. He reports he believes that he is due "100s of millions of dollars due to [the government] causing pain suppression via cybernetic implants." The patient was upset that this commercial loan underwriter did not contact the FBI or his psychologist who he had had remotely seen in the past and for whom he did not have contact information. Sleep: 6.5 hours Appetite: Eating meals Suicidal and homicidal ideation: Denies Auditory hallucinations: Unclear Visual hallucinations: None reported Other Psychotic Symptoms: Multiple delusions as above Anxiety: Depression: Current Medications Current Medications Temazepam 15 mg HS PRN PO Last administered on 12/27/16t 20:30; Admin Dose 15 MG ; Start 12/27/16 at 12:55 Mental Status Exam Vital Signs Vital Signs Date Time Temp Pulse Resp B/P Pulse Ox O2 Delivery O2 Flow Rate FiO2 12/28/16 11:01 36.1 82 16 106/67 Appearance: Neat/well groomed Attitude: Cooperative (marginally), Guarded Behavior: Overtly anxious Affect: Labile, Other (intense, but remains appropriate) Mood: Irritable, Anxious Thought Process/Associations: Tangential, Circumstantial Speech Production: Abundant Speech Rate: Pressured Speech Articulation: Normal Thought Content: Negativistic, Somatic preoccupation, Perseveration Danger to Self/Suicidal Ideati: None Danger to Others: None Delusions: Paranoid (Endorses), Grandiose (Endorses) Hallucinations: Auditory (Endorses, unclear), Visual (Denies) Consciousness: Alert Orientation: Person, Place, Date, Situation Memory: Grossly Intact Estimate Intellectual Function: Average Basis for IQ estimate: Awareness current events, Word use/vocabulary, Educational history, Employment history Attention/Concentration & Cogn: Impaired Insight: Limited Judgement: Limited Mental Health Plan The patient is a 56-year-old male with a history of schizophrenia who presents with worsening psychotic symptoms and aggressive behavior. The patient has not had any recent followup. The patient is agreeable to medications and followup in the community. He is still focused today on his medical issues and reports that he feels his current medications are helpful, but is focused on his delusions and need for early discharge. The patient had been unwilling to stay in the hospital voluntarily or continue his case and ultimately the court placed him on a 90 day less restrictive order with 3 inpatient days rather than a 14 day order. The patient's head CT demonstrated some volume loss for age and white matter changes; no other acute findings. Given the patient's ongoing psychotic symptoms, should the patient continued to demand discharge, an AMA discharge may be indicated. Given the fact that he is on a 90 day less restrictive order and would need medications or would automatically be in violation of the order, this should be discussed with risk management if this option is considered. [place] I 1. Schizophrenia, chronic paranoid type versus schizoaffective disorder , bipolar type. 2. Alcohol use disorder. [place] II Deferred. [place] III See past medical history. [place] IV Severe with unemployment, homelessness(living with parents), limited social supports. [place] V Global Assessment of Functioning 35. Medications Olanzapine 15 mg at bedtime Diazepam 5 mg twice daily Diazepam 5 mg 3 times daily as needed for anxiety or agitation Temazepam 15 mg nightly when necessary insomnia may repeat 1 Flexeril 10 mg 3 times daily as needed for spasm Treatments 1. The patient is admitted to the inpatient unit and will be provided a safe and secure environment. 2. The patient is currently denying active suicidality and is not in need of a one-to-one at this time. 3. The patient is encouraged to participate with group and milieu activities. 4. The patient will be seen by the treatment team on a daily basis to assess symptoms, side effects, and response to treatment. 5. Continue olanzapine 15 mg nightly. 6. The patient will be continued on diazepam 5 mg twice daily for agitation and elevated mood as well as 5 mg three times a day as needed. 7. May need mood stabilizer if does not respond to olanzapine monotherapy. 8. Discontinue Ambien and start temazepam 15 mg nightly when necessary insomnia may repeat 1 9. Flexeril 10mg mg 3 times daily as needed for muscle spasm. 10. The patient is not appropriate to discharge today given his level of psychosis. 11. The patient was placed on a 90 day less restrictive order with 3 days of inpatient time which tomorrow. It is unclear whether he will be appropriate for discharge at that time. Titi Bonilla MD Dec 28, 2016 18:15
--- NOTE | 2016-12-28 19:16 | NUR ---
NURSING NOTE [id number] Mood: "I'm in the throes of something here, that's what's really going on" Affect: flat, sarcastic at times Behavior: watching TV, using an ice pack on his back and frequently refilling it, often asking for PRNs for pain and anxiety Thought processes: continues to be delusional, grandiose, making bizarre statements often invoking conspiracy theories. Irritated that he is here and wants to discharge. PRNs Tylenol 15:30 for 910 back pain, pt. reported it didn't help w/his pain Addendum: 12/28/16 at 2126 by TOÑA GARCIA RN PRN Temazepam and Flexeril at .
--- NOTE | 2016-12-29 06:27 | NUR ---
Nursing Note, extractor loader and unloader 11pm to 7am Pt with interrupted sleep during the night. Got up every 2 hours for a drink went back to sleep. At 0400 pt awake again and unable to go back to sleep. Pt is frustrated over insomnia. He did have Restoril for sleep x 2 last night but was ineffective in sustaining sleep. Pt stated " It is being done remotely. The transmissions wake me up and my brain is too activated to go back to sleep". Pt reported he has similar issues when at home. Pt received Valium 5mg PRN at 0100 for anxiety. Monitored q 15 minutes for safety, location and accountability.
[2016-12-29 09:30] VITALS: BP 96/69; PULSE 98; RESP 16
--- NOTE | 2016-12-29 11:53 | NUR ---
anxiety patient reports feeling anxious, rates 7/10. PRN Valium 5mg PO given, per patient request
[2016-12-29] MEDS ORDERED: DIAZ5TAB PO (12:05)
[2016-12-29] MEDS ORDERED: OLAN5TAB PO (12:05)
--- NOTE | 2016-12-29 12:07 | PCM.DIMED ---
Discharge Instructions Date of Service Dec 29, 2016 Dates of Hospitalization Dec 22, 2016 at 10:29 Discharge Diagnosis Discharge Diagnosis Rolla I 1. Schizophrenia, chronic paranoid type versus schizoaffective disorder , bipolar type. 2. Alcohol use disorder. Rolla II Deferred. Rolla III See past medical history. Rolla IV Severe with unemployment, homelessness(living with parents), limited social supports. Rolla V Global Assessment of Functioning 40 Medication Instructions I Strongly encouraged patient to follow up with outpatient care: 1-Recommended patient takes medication as prescribed and not alter this unless under the direct care of a provider: Olanzapine 15 mg at bedtime Diazepam 5 mg twice daily 2-Recommend client refrain from recreational drugs and alcohol while taking psychiatric medications. 3-Recommend patient attempt to find a therapist or group to deal with impulse control and interpersonal relationship conflicts Diet No restrictions Activity No restrictions Call your provider Fever or Chills Patient Instructions Follow-up with Temo Dasilva [facility] for 1117 at 12:30 PM Denis Yap intake Follow up with Dr. Facundo Dasilva [facility] 01/27/2017 8:45 AM Follow-up with PCP in: 2 weeks Harshal Samayoa MD Dec 29, 2016 12:07
[2016-12-29] MEDS ORDERED: CYCL10TA9 PO (12:28)
--- NOTE | 2016-12-29 12:28 | NUR ---
Dandy Tender./ c.m. S.:"I'm ready to go as soon as possible." O.: pt. completed Safety plan. He denied SI/HI. He complained about his sleep last night but he was determined to go home today. He has intake appt. for mental health services for 90 LRO with CHRISTINE Tellez tomorrow, December 30 @ 12:30 pm at [facility] in [facility] ([phone]). He has intake appt. for medical services with Shabbir Castillo MD on January 27 at 9:15 am at [facility] in [facility] ([phone]). Pt. said that transportation won't be an issue for him. He spent a lot of time in a public area but kept mostly to himself. A.: pt. is isolative, quiet, internally preoccupied. P.: monitor behavior, follow care plan.
--- NOTE | 2016-12-29 12:47 | NUR ---
Nursing Note Discharge S/O: Pt discharged with mother at 1235. Pt expressed understanding of discharge instructions & appointments. Pt disagreed with dx of schizophrenia. Pt agrees to maintain safety of himself & others. Pt took all belongings with him. Scripts given to pt for olanzapine, diazepam, & cyclobenzaprine for him to fill at the pharmacy of his choosing. Pt stated to [facility], "The safety plan will be null & void after I go into the witness protection program." Pt remains delusional, but has no homicidal/suicidal thoughts.
--- NOTE | 2016-12-29 22:19 | DIS ---
[address] [address] DISCHARGE SUMMARY PATIENT: ALYCE PHAM : 1960 MR#: [id number] ADMIT: 12/22/2016 JOB ID: [id number] DIS: 12/29/2016 IDENTIFICATION: Patient is a 56-year-old male with history of schizophrenia, who presented initially with increasing symptoms of psychosis and aggressive behavior toward his an 80-year-old parents. The patient has not had treatment in the community for what appears to be approximately five years. He was committed to three days on our unit and his legal hold is up today. He remains quite psychotic with multiple delusional beliefs, however, he denied danger to harm, intent to harm others, and was showing good impulse control during my session. He reported multiple delusional beliefs related to the government and a chip being placed in his head. He was initially admitted after [place] [employer] were called to the home for delusional and aggressive behavior. He had reportedly become obsessed with a device that he believes is implanted in his brain and has multiple government conspiracies. He does have a history of four different inpatient psychiatric hospitalizations and appears to have been off all medications for the past five years. HOSPITAL COURSE: Client was admitted to our unit and was provided with a high degree of safety through the structure and active adult engagement he received here. Dr. Bonilla treated him for the past week with a combination of Zyprexa and Valium. He has shown gradual improvement over the week, but both Dr. Bonilla and I believe he would benefit from an additional 3-5 days on our unit. I have no legal grounds with which to hold him and his hold runs out today. I do not believe he is in imminent risk of harm to himself or others, but I also do not believe that he has not required insight and judgment to seek appropriate care. At this point, he is telling me he will take his medications, follow up with the [facility], and that his parents are willing to have him back. On the unit, he has shown no overt aggressive behavior and has been attending well to his activities of daily living. Client requesting discharge today. I spoke with him that I would discharge him against medical advice. I did state that I would give him a month's supply of medications. MENTAL STATUS EXAMINATION: Client neatly and stylishly dressed. Good eye contact. Behavior calm. Attitude cooperative. Speech normal rate, rhythm. Mood euthymic. Affect congruent. Normal intensity. Thought process: Client does not appear to be responding to internal stimuli, but also he is unable to relate a coherent history. His thought process tends to be tangential. His thought content is significant for multiple themes of paranoia and persecution. His delusions tend to be grandiose and about government conspiracy nature. He also has somatic delusions that the [employer] has placed a chip in his brain and that they can monitor his behavior. Denied auditory hallucinations. Denied suicidal ideation or homicidal ideation. Alert and oriented to person, place, and date. Immediate, short, and long-term memory intact. Attention and concentration impaired due to delusional thought. Insight and judgment around delusional content poor. Impulse control was quite good. Impulse control highly contained yet rigid, has a difficult time handling impulses of anger and fear. Reality testing is impaired. Competence to handle current stressors appears to be at baseline. DISCHARGE DIAGNOSES: AXIS I: Paranoid schizophrenia. AXIS II: Deferred. AXIS III: 1. History of pancreatitis. 2. Traumatic clavicle separation. 3. Reports of back and neck surgery. 4. Hypertension. 5. Migraines. AXIS IV: Mild. AXIS V: Current Global Assessment of Functioning equal to 40. DISCHARGE MEDICATIONS: 1. Zyprexa 15 h.s. 2. Valium 5 twice a day. DISCHARGE APPOINTMENTS: Client to be discharged to his parent's home in [place]. Client to follow up with [facility] December 30, 2016, for an intake. On January 27, 2017, for an appointment with his doctor, Dr. Loredo. ACTIVITY AND DIET: No restriction. CONDITION ON DISCHARGE: Client remains highly delusional. PROGNOSIS: Guarded due to lack of insight and likely inability to participate meaningfully in outpatient care.
== END 2016-12-29 12:35 | disposition home or self-care (01) | DRG 885 ==
LOC: SED 22:10 → MHC 12-22 10:29
PROVIDERS: ADMIT Psychiatry & Neurology Psychiatry; ATTEND Psychiatry & Neurology Psychiatry
DX: F20.0 Paranoid schizophrenia (principal); F17.200 Nicotine dependence, unspecified, uncomplicated; I10 Essential (primary) hypertension; Z72.89 Other problems related to lifestyle